=== PATIENT | male | born 1985 | race Caucasian/White ===

== ENCOUNTER 2024-04-13 13:49 | Emergency (ER) | payer MEDICAID, OTHER ==
[2024-04-13 14:23] LABS: BASOPHILS % (AUTO) 0.6 %; EOSINOPHILS # (AUTO) 0.2 10^3/uL (0.0-0.7); HCT - HEMATOCRIT 41.1 % (42.0-52.0); HGB - HEMOGLOBIN 13.6 g/dL (14.0-18.0); LYMPHOCYTES # (AUTO) 1.2 10^3/uL (1.5-3.5); LYMPHOCYTES % (AUTO) 19.9 %; MEAN CORPUSCULAR HGB CONC 33.1 g/dL (32.0-36.0); MEAN CORPUSCULAR VOLUME 96.7 fL (80.0-94.0); MEAN PLATELET VOLUME 9.9 fL (7.4-11.4); MONOCYTES # (AUTO) 0.5 10^3/uL (0.0-1.0); NEUTROPHILS # (AUTO) 4.3 10^3/uL (1.5-6.6); NEUTROPHILS % (AUTO) 68.2 %; PLT - PLATELET COUNT 277 10^3/uL (130-450); RED BLOOD COUNT 4.25 10^6/uL (4.70-6.10); RED CELL DISTRIBUTION WIDTH 12.5 % (12.0-15.0); WHITE BLOOD COUNT 6.2 x10^3/uL (4.8-10.8)
[2024-04-13 14:37] LABS: ALBUMIN 4.5 g/dL (3.2-5.5); ALBUMIN/GLOBULIN RATIO 1.5 (1.0-2.2); BILIRUBIN,TOTAL 0.5 mg/dL (0.2-1.0); CALCIUM 9.6 mg/dL (8.5-10.3); CREATININE 0.9 mg/dL (0.6-1.3); POTASSIUM 4.1 mmol/L (3.5-4.5); TOTAL PROTEIN 7.6 g/dL (6.4-8.9)
--- NOTE | 2024-04-13 15:06 | ED Physician Documentation ---
PD HPI ABD PAIN - Stated complaint Stated Complaint: LT ABD PX, BLADDER SPASM - Chief complaint Chief Complaint: Abd Pain - History obtained from History obtained from: Patient - Additional information Additional information: HE HAS HX INNUMERABLE KIDNEY STONES. LITHOTRIPSY X2 L FLANK PAIN X2D WITH N/V. NO HEMATURIA. PD PAST MEDICAL HISTORY - Past Medical History Past Medical History: Yes : Kidney stones - Past Surgical History Past Surgical History: Yes - Present Medications Home Medications: Ambulatory Orders Medication Instructions Recorded Confirmed Escitalopram [Lexapro] 2 tab PO DAILY 04/13/24 04/13/24 Ibuprofen [Motrin] 800 mg PO Q8H PRN #20 tablet 04/13/24 Oxycodone HCl/Acetaminophen 1 - 2 each PO Q6H PRN #14 tablet 04/13/24 [Percocet 5-325 mg Tablet] amLODIPine [Norvasc] 1 tab PO DAILY 04/13/24 04/13/24 methocarbamoL [Methocarbamol] 1 tab PO QID PRN 04/13/24 04/13/24 - Allergies Allergies/Adverse Reactions: Allergies Allergy/AdvReac Type Severity Reaction Status Date / Time No Known Drug Allergies Allergy Verified 04/13/24 13:57 - Social History Does the pt smoke?: No Smoking Status: Never smoker Does the pt have substance abuse?: No - Immunizations Immunizations are current?: Yes PD ED PE NORMAL - Vitals Vital signs reviewed: Yes - General General: Alert and oriented X 3, Other (UNCOMFORTABLE) - Abdomen Abdomen: Non tender - Back Back: No CVA TTP - Neuro Neuro: Alert and oriented X 3 Results - Vitals Vitals: Vital Signs - 24 hr 04/13/24 13:52 Temperature 36.2 C L Heart Rate 91 Respiratory 22 Rate Blood Pressure 146/105 H O2 Saturation 98 Oxygen O2 Source Room air - Labs Labs: Laboratory Tests 04/13/24 04/13/24 04/13/24 14:18 14:18 15:08 WBC 6.2 RBC 4.25 L Hgb 13.6 L Hct 41.1 L MCV 96.7 H MCH 32.0 H MCHC 33.1 RDW 12.5 Plt Count 277 MPV 9.9 Neut # (Auto) 4.3 Lymph # (Auto) 1.2 L [place] # (Auto) 0.5 Eos # (Auto) 0.2 Baso # (Auto) 0.0 Absolute Nucleated RBC 0.00 Nucleated RBC % 0.0 Sodium 136 Potassium 4.1 Chloride 102 Carbon Dioxide 29 Anion Gap 5.0 L BUN 16 Creatinine 0.9 Estimated GFR (MDRD) 93 Glucose 93 Calcium 9.6 Total Bilirubin 0.5 AST 17 ALT 17 Alkaline Phosphatase 51 Total Protein 7.6 Albumin 4.5 Globulin 3.1 Albumin/Globulin Ratio 1.5 Urine Color YELLOW Urine Clarity CLEAR Urine pH 6.5 Ur Specific [place] 1.025 Urine Protein NEGATIVE Urine Glucose (UA) NEGATIVE Urine Ketones NEGATIVE Urine Occult Blood NEGATIVE Urine Nitrite NEGATIVE Urine Bilirubin NEGATIVE Urine Urobilinogen 0.2 (NORMAL) Ur Leukocyte Esterase NEGATIVE Ur Microscopic Review NOT INDICATED Urine Culture Comments NOT INDICATED - Rads (name of study) CT KUB showing recent passage of 2 mm stone from the left ureter into the bladder with bilateral nephrolithiasis. Relevant Findings:: Final report received, EMP independent interpretation of test PD Medical Decision Making - ED course ED course: 38-year-old gentleman with recurrent kidney stones presents with symptoms consistent with renal colic. He was initially medicated with Toradol, Dilaudid, and Zofran with modest relief of his pain and repeated with [address] imaging demonstrates the stone now in the bladder. Per his request we sent the images to the [facility] as that is where he plans to follow-up. CBC showing very mild anemia, no priors for comparison. Chemistry panel and urinalysis were unremarkable. Departure - Departure Disposition: 01 Home, Self Care Clinical Impression: Renal colic Condition: Good Record reviewed to determine appropriate education?: Yes Instructions: ED Stone Renal W Colic Prescriptions: Ibuprofen [Motrin] 800 mg PO Q8H PRN #20 tablet PRN Reason: PAIN &/OR FEVER Oxycodone HCl/Acetaminophen [Percocet 5-325 mg Tablet] 1 - 2 each PO Q6H PRN #14 tablet PRN Reason: pain Comments: I sent your prescriptions electronically to the [facility] in [place]. CT imaging showing today the stone in your bladder so really should not be hurting much longer. Follow-up with your urologist, next available appointment. Return for new or worsening symptoms. I am prescribing a short course of narcotic pain medication for you. These are potentially dangerous and addictive medications that should be used carefully. These medications may constipate you. Take an jxcl-udr-daamgxh stool softener (docusate) twice daily with plenty of water while taking these medications. If you go 24 hours without a bowel movement, take [id number] miralax, per package instructions. Do not drink or drive while taking these medications. If you received narcotic or sedating medications while in the emergency department, do not drive for 24 hours. Store this medication in a safe, secure place and out of reach of children. It is a violation of federal law to give or sell this medication to another person or to use in a manner other than prescribed. The ED will not refill narcotic prescriptions, including prescriptions lost or stolen. To dispose of unwanted medications: 1. [facility] provides a drop box for medication in pill form only (no liquids) 8:00 am to 4:30 p.m. Wednesday-Wednesday in the lobby of the [facility], [address] [place] [address]. Empty pills into ziplock bag before disposal. Call [phone] for information. 2.[employer] is a free service available to all [facility] residents. Go to [email or web address] Note that many narcotic pain relievers also contain Tylenol/acetaminophen. Please ensure that your total dose of acetaminophen from all sources does not exceed 3 g (3000 mg) per day. Forms: PCP List
[2024-04-13] MEDS: HYDROmorphone 1 MG/ML CARPUJECT IVP STA ×2 (15:24→16:33)
[2024-04-13] MEDS: SODIUM CHLORIDE 0.9% 1,000 ML IV STA (15:24)
[2024-04-13] MEDS: KETOROLAC 15 MG/ML VIAL IVP STA (15:24)
[2024-04-13] MEDS: ONDANSETRON 4 MG/2 ML VIAL IVP STA (15:24)
[2024-04-13 15:41] LABS: BILIRUBIN,URINE NEGATIVE (NEGATIVE); GLUCOSE, URINE (UA) NEGATIVE (NEGATIVE); KETONES,URINE (UA) NEGATIVE (NEGATIVE); LEUKOCYTE ESTERASE, URINE NEGATIVE (NEGATIVE); NITRITE,URINE NEGATIVE (NEGATIVE); OCCULT BLOOD,URINE NEGATIVE (NEGATIVE); PH,URINE 6.5 PH (5.0-7.5); PROTEIN,URINE NEGATIVE (NEGATIVE); UROBILINOGEN,URINE 0.2 (NORMAL) E.U./dL (NORMAL)
[2024-04-13 15:43] LABS: CLARITY,URINE CLEAR (CLEAR)
--- NOTE | 2024-04-13 16:13 | CT Report ---
PROCEDURE: Abdomen/Pelvis WO INDICATIONS: L flank pain TECHNIQUE: A CT scan of the abdomen and pelvis was performed without the use of intravenous contrast. Images we re recorded and evaluated at appropriate window settings. Reformats: coronal and sagittal. For radiat ion dose reduction, the following was used: automated exposure control, adjustment of mA and/or kV ac cording to patient size. COMPARISON: None. FINDINGS: Image quality: Diagnostic. Lower chest: Unremarkable. Liver: No contour-deforming mass. Gallbladder: No radiopaque stones or wall thickening. Biliary tree: No intrahepatic or extrahepatic dilation, accounting for age. Spleen: No splenomegaly. Pancreas: No pancreatic ductal dilation. Adrenals: No adrenal nodule. Right Kidney: 1 mm upper pole stone and 1 mm lower pole stone, nonobstructive. No hydronephrosis. Right Ureter: Unremarkable Left Kidney: Numerous tiny stones, the largest 2 of which are 3 mm, and are nonobstructive. Left Ureter: A 2 mm stone has recently passed from the left ureter into the bladder. There is mild pr ominence of the left ureter. Stomach, bowel and peritoneum: No gastric or small bowel dilation. No abnormal wall thickening. No pa thologic free fluid. Normal appendix. Lymph nodes: No central or retroperitoneal adenopathy. Vessels: No infrarenal aortic aneurysm. Reproductive organs: Unremarkable. Bladder: Bladder wall thickness is normal, accounting for underdistention. No calcified bladder stone s. Pelvic lymph nodes: No adenopathy by size criteria. Bones: No aggressive osseous abnormality. Other: No significant ventral or inguinal hernia. IMPRESSION: 1. Recent passage of a 2 mm stone from the distal left ureter into the bladder. 2. Bilateral nephrolithiasis. 3. No hydronephrosis. Reviewed by: Julio Fountain MD on 04/13/2024 4:11 PM PDT Approved by: Julio Fountain MD on 04/13/2024 4:11 PM PDT Station ID: [id number]
[2024-04-13 16:47] VITALS: BP 147/108; O2SAT 8
== END 2024-04-13 16:40 | disposition home or self-care (01) ==
LOC: ED 13:49
DX: N23 Unspecified renal colic (principal); N21.0 Calculus in bladder
CPT/HCPCS: 36415; 74176; 80053; 81003; 85025; 96374; 96376; 99284; J1170; 81001; 87086